=== PATIENT | male | born 1945 | race Caucasian/White ===

== ENCOUNTER → 2018-02-09 | Outpatient (CLI) | payer OTHER, MEDICARE | LOC: M.LAB 00:23 | DX: Z01.812 Encounter for preprocedural laboratory examination (principal); Z79.899 Other long term (current) drug therapy ==

== ENCOUNTER → 2018-04-30 | Outpatient (CLI) | payer OTHER, MEDICARE | LOC: M.ULTRA 07:30 | DX: R59.0 Localized enlarged lymph nodes (principal) ==

== ENCOUNTER → 2018-05-04 | Outpatient (CLI) | payer OTHER, MEDICARE | LOC: M.CT 07:27 | DX: M47.812 Spondylosis without myelopathy or radiculopathy, cervical region (principal); J34.1 Cyst and mucocele of nose and nasal sinus; R22.1 Localized swelling, mass and lump, neck ==

== ENCOUNTER 2018-07-21 19:14 | Emergency (ER) | payer OTHER, MEDICARE ==
[~2018-07-21] VITALS: Ht 177.8 cm; Wt 104.3 kg
[2018-07-21 21:31] VITALS: BP 136/71
== END 2018-07-21 21:31 | disposition home or self-care (01) ==
LOC: M.ERS 19:14
DX: I80.01 Phlebitis and thrombophlebitis of superficial vessels of right lower extremity (principal); E03.9 Hypothyroidism, unspecified

== ENCOUNTER → 2019-07-28 | Outpatient (CLI) | payer OTHER, MEDICARE | LOC: M.CT 12:00 | DX: N28.1 Cyst of kidney, acquired (principal); D73.4 Cyst of spleen; N21.0 Calculus in bladder; K76.0 Fatty (change of) liver, not elsewhere classified; Z87.442 Personal history of urinary calculi ==

== ENCOUNTER 2019-12-15 19:53 | Emergency (ER) | payer OTHER, MEDICARE ==
[~2019-12-15] VITALS: Ht 177.8 cm; Wt 102.1 kg
[2019-12-15] MEDS ORDERED: HYDROCHLOROTHIA25 M2 PO (20:15)
[2019-12-15] MEDS ORDERED: BENAZEPRIL 10 M10 MG PO (20:15)
[2019-12-15] MEDS ORDERED: SIMVASTATIN40 MG PO (20:18)
[2019-12-15] MEDS ORDERED: LEVO-T50 MCG PO (20:19)
[2019-12-15] MEDS ORDERED: FLONASE 0.05%50 MCG NASAL (20:20)
[2019-12-15 20:47] LABS: ABSOLUTE EOSINOPHILS 0.1 thou/uL (0.0-0.7); ABSOLUTE LYMPHOCYTES 1.2 thou/uL (0.8-5.3); ABSOLUTE NEUTROPHILS 6.4 thou/uL (1.6-8.1); BASOPHILS 0.6 %; EOSINOPHILS 0.8 %; HEMATOCRIT 39.1 % (42.0-52.0); HEMOGLOBIN 13.6 gm/dL (14.0-18.0); LYMPHOCYTES 13.7 %; MCH 29.4 pg (26.0-34.0); MCHC 34.8 g/dL (28.0-37.0); MCV 84.7 fL (80.0-100.0); MONOCYTES 11.2 %; MPV 8.2 fl. (7.2-11.1); NUCLEATED RBCS 0 /100WBC; PLATELET COUNT* 188 thou/uL (150-400); POLYS 73.7 %; RBC 4.61 mil/uL (4.50-6.00); RDW-CV 14.2 % (10.5-14.5); WBC 8.7 thou/uL (4.0-11.0)
[2019-12-15 20:56] LABS: CALCIUM 9.2 mg/dL (8.5-10.1); POTASSIUM 3.5 mmol/L (3.5-5.1)
[2019-12-15 20:57] LABS: INR 1.1
[2019-12-15 21:01] LABS: ALBUMIN 3.9 g/dL (3.4-5.0); TOTAL BILIRUBIN 0.4 mg/dL (<0.1-1.0); TOTAL PROTEIN 7.3 g/dL (6.4-8.2)
[2019-12-15 22:00] VITALS: BP 115/73
--- NOTE | 2019-12-16 10:26 | EKG ---
[place] [address] ELECTROCARDIOGRAM REPORT Name: PAMELA PATEL Room: [facility]#: [id number] Admission: 12/15/19 Attend Phys: Discharge: 12/15/19 Date of : 43 Report #: [id number] THIS REPORT FOR: //name// [facility] ED Test Date: 2019-12-15 Test Time: 20:02:44 Pat Name: PAMELA PATEL Department: Room: Gender: M Container Filler: [place] : 1945 Requested By: Noelle Machado Order Number: [id number] MD: Tip Delgado Measurements Intervals [place] Rate: 90 P: MI: QRS: 69 QRSD: 103 T: 27 QT: 370 QTc: 453 Interpretive Statements Atrial flutter with predominant 3:1 AV block Nonspecific repol abnormality, anterior leads Baseline wander in lead(s) V3 No previous ECG available for comparison Electronically Signed On 12-16-2019 10:26:07 BREAD ICER by Tip Delgado [email or web address] <ELECTRONICALLY SIGNED> By: Tip Delgado MD, [facility] 12/16/19 1026 01 01 Tip Delgado MD, FACC /EPI
== END 2019-12-15 22:00 | disposition home or self-care (01) ==
LOC: M.ERS 19:53
PROVIDERS: Personal Emergency Response Attendant
DX: I48.92 Unspecified atrial flutter (principal); N28.9 Disorder of kidney and ureter, unspecified; M25.511 Pain in right shoulder; E03.9 Hypothyroidism, unspecified; I10 Essential (primary) hypertension; Z87.442 Personal history of urinary calculi

== ENCOUNTER → 2020-04-03 | Outpatient (CLI) | payer OTHER, MEDICARE ==
[~2020-04-03] MED LIST: BENAZEPRIL 10 M10 MG PO; FLONASE 0.05%50 MCG NASAL; HYDROCHLOROTHIA25 M2 PO; LEVO-T50 MCG PO; SIMVASTATIN40 MG PO
--- NOTE | 2020-04-03 13:02 | 2DMMODE ---
[place] [address] 2 D/M-MODE ECHOCARDIOGRAM Name: PAMELA PATEL Room: [facility]#: [id number] Admission: 04/03/20 Attend Phys: Rohan Salazar, Discharge: Date of : 43 Date of Service: 04/03/20 1300 Report #: [id number] THIS REPORT FOR: cc: Pamela Duval John E. DO Liston, Michael J. MD [facility] ~ APPROVED REPORT Study performed: 04/03/2020 10:32:04 EXAM: Comprehensive 2D, Doppler, and color-flow Echocardiogram Patient Location: Out-Patient BSA: 2.17 HR: 53 bpm BP: 136/82 mmHg Other Information Study Quality: Good Indications Atrial Fibrillation 2D Dimensions IVSd: 14.00 (7-11mm) LVOT Diam: 22.85 (18-24mm) LVDd: 43.06 mm PWd: 11.32 (7-11mm) Ascending Ao: 40.07 (22-36mm) LVDs: 24.97 (25-40mm) Aortic Root: 31.13 mm Volumes Left Atrial Volume (Systole) LA ESV Index: 16.30 mL/m2 Aortic Valve AoV Peak Feliciano.: 1.18 m/s AO Peak Gr.: 5.56 mmHg LVOT Max P.27 mmHg AO Mean Gr.: 3.45 mmHg LVOT Mean P.85 mmHg LVOT Max V: 1.25 m/s AO V2 VTI: 24.39 cm LVOT Mean V: 0.93 m/s LILLI (VTI): 4.70 cm2 LVOT V1 VTI: 27.96 cm Mitral Valve E/A Ratio: 0.63 [place] [address] 2 D/M-MODE ECHOCARDIOGRAM Name: PAMELA PATEL Room: [facility]#: [id number] Admission: 04/03/20 Attend Phys: Rohan Salazar, Discharge: Date of : 43 Date of Service: 04/03/[address] [facility] Report #: [id number] MV Decel. Time: 430.96 ms MV E Max Feliciano.: 0.35 m/s MV PHT: 124.98 ms MVA (PHT): 1.76 cm2 TDI E/Lateral E': 2.50 E/Medial E': 5.00 Medial E' Feliciano.: 0.07 m/s Lateral E' Feliciano.: 0.14 m/s Pulmonary Valve PV Peak Feliciano.: 0.89 m/s PV Peak Gr.: 3.14 mmHg Tricuspid Valve RAP Estimate: 5.00 mmHg TR Peak Gr.: 19.79 mmHg RVSP: 24.79 mmHg PA Pressure: 24.79 mmHg Left Ventricle The left ventricle is normal size. There is normal LV segmental wall motion. Mild concentric left ventricular hypertrophy. Left ventricular systolic function is normal. LVEF is 65-70%. Grade I - abnormal relaxation pattern. Right Ventricle The right ventricle is normal size. The right ventricular systolic function is normal. Atria The left atrium size is normal. The right atrium size is normal. Aortic Valve The aortic valve is normal in structure. No aortic regurgitation is present. There is no aortic valvular stenosis. Mitral Valve The mitral valve is normal in structure. There is no mitral valve regurgitation noted. No evidence of mitral valve stenosis. Tricuspid Valve The tricuspid valve is normal in structure. Mild tricuspid regurgitation. No pulmonary hypertension. Pulmonic Valve The pulmonary valve is normal in structure[place] [address] 2 D/M-MODE ECHOCARDIOGRAM Name: PAMELA PATEL Room: [facility]#: [id number] Admission: 04/03/20 Attend Phys: Rohan Salazar, Discharge: Date of : 43 Date of Service: 04/03/20 1300 Report #: [id number] valvular regurgitation. Great Vessels The aortic root is normal in size. IVC is normal in size and collapses >50% with inspiration. Pericardium There is no pericardial effusion. <Conclusion> The left ventricle is normal size. Mild concentric left ventricular hypertrophy. Left ventricular systolic function is normal. LVEF is 65-70%. Grade I - abnormal relaxation pattern. Mild tricuspid regurgitation. No pulmonary hypertension. IVC is normal in size and collapses >50% with inspiration. <ELECTRONICALLY SIGNED> By: Rohan Salazar MD, FACC 04/03/20 1300 1300 1300 Rohan Salazar MD, FACC /INF
--- NOTE | 2020-04-03 13:14 | CARDNUC ---
[place] [address] CARDIAC NUCLEAR IMAGING REPORT Name: PAMELA PATEL Room: [facility]#: [id number] Admission: 04/03/20 Attend Phys: Rohan Salazar, Discharge: Date of : 43 Date of Service: 04/03/20 1313 Report #: [id number] THIS REPORT FOR: cc: Pamela Duval John E. DO Liston, Michael J. MD [facility] ~ APPROVED REPORT Imaging Protocol: Rest Tc-99m/Stress Tc-99m 1 day Study performed: 04/03/2020 08:45:00 Indication: Abnormal EKG Patient Location: Out-Patient Stress Tech: Alexandra Noel Stress Nurse: Karyn Bowling RN NM Tech:BELLA Gardner Ht: 5 ft 10 in Wt: 220 lbs BSA: 2.17 m2 HR: 53 bpm BP: 136/82 mmHg BMI: 31.56 Rhythm: Sinus Bradycardia Medical History Medical History: HTN Medications: Benazipril, Flecainide, HCTZ, Xarelto, Zocor Allergies: No known drug allergies Cardiac Risk Factors: Age, HTN, Hyperlipidemia Resting Data Rest SPECT myocardial perfusion imaging was performed in supine position 30 minutes following the intravenous injection of 9.0 mCi of Tc-99m Sestamibi. Time of rest injection: 0850 Date: 04/03/2020 The images were gated to evaluate regional wall motion and calculate left ventricular ejection fraction. Administration Route: IV Administration Site: Right AC Pharmacologic Stress Pharmacologic stress test was performed by injecting Regadenoson 0.4 mg IV push over 10-15 seconds immediately followed by the intravenous injection of 30.4 mCi of Tc-99m Sestamibi. Time of stress injection: 1030 Date: 04/03/2020 Administration Route: [place] [address] CARDIAC NUCLEAR IMAGING REPORT Name: PAMELA PATEL [id number] Admission: 04/03/20 Attend Phys: Rohan Salazar, Discharge: Date of : 43 Date of Service: 04/03/20 1313 Report #: [id number] Administration Site: Right AC Gated Stress SPECT was performed 40 minutes after stress injection. The images were gated to evaluate regional wall motion and calculate left ventricular ejection fraction. Stress only was performed in the Supine position. Stress Test Details Stress Test: Pharmacologic stress testing performed using 0.4 mg of regadenoson per 5 mL given IV over 10 seconds. HR Max Heart Rate (APMHR): 145 bpm Resting HR: 53 bpm Target HR (85% APMHR): 123 bpm Max HR Achieved: 83 bpm % of APMHR: 57 Recovery HR: 73 bpm BP Resting BP: 136/82 mmHg Max BP: 159/70 mmHg Recovery BP: 165/84 mmHg ECG Resting ECG: Sinus Bradycardia Stress ECG: Sinus Rhythm ST Change: None Arrhythmia: None Recovery ECG: Sinus Rhythm Recovery ST Change: None Recovery Arrhythmia: None Clinical The patient tolerated Lexiscan infusion without significant cardiac symptoms. Stress ECG Conclusion Baseline twelve-lead EKG shows sinus bradycardia with diffuse ST segment elevation consistent with early repolarization. There were no T wave abnormalities. EKGs obtained during and post Lexiscan infusion shows sinus rhythm with no significant ST segment or T wave changes when compared to baseline. There were no stress-induced arrhythmias. Study Quality Study: Good Artifact: Mild [place] [address] CARDIAC NUCLEAR IMAGING REPORT Name: APMELA PATEL Room: [facility]#: [id number] Admission: 04/03/20 Attend Phys: Rohan Salazar, Discharge: Date of : 43 Date of Service: 04/03/20 1313 Report #: [id number] Study Data At rest, the left ventricular ejection fraction was 72%.. Post stress, the left ventricular ejection was 71%.. TID = 0.93. Perfusion Myocardial perfusion images show a mild photopenia in the inferior wall that appears more pronounced on rest than stress images. No other significant defects are identified. Wall motion in the region of the inferior wall appears normal suggesting diaphragmatic attenuation artifact. Wall Motion Normal left ventricular wall motion. Nuclear Conclusion ECG Findings: negative for ischemia Clinical Findings: negative for ischemia Nuclear Findings: negative for ischemia Exercise Capacity: not assessed Left Ventricular Function: normal Risk Study: low Inferior wall defects noted are consistent with diaphragmatic attenuation artifact. There were no significant fixed or reversible defects to suggest infarct or ischemia. Global LV systolic function appears normal on gated studies. This is a low risk study. <Conclusion> Baseline twelve-lead EKG shows sinus bradycardia with diffuse ST segment elevation consistent with early repolarization. There were no T wave abnormalities. EKGs obtained during and post Lexiscan infusion shows sinus rhythm with no significant ST segment or T wave changes when compared to baseline. There were no stress-induced arrhythmias. <ELECTRONICALLY SIGNED> By: Rohan Salazar MD, FACC 04/03/20 1313 1313 Rohan Salazar MD, FACC /INF
== END ==
LOC: M.CRD 01-25 07:09 → M.NUC 08:00 → M.CRD 04-04 08:00
DX: I07.1 Rheumatic tricuspid insufficiency (principal); I48.92 Unspecified atrial flutter